=== PATIENT | female | born 2005 | race Caucasian/White ===

== ENCOUNTER 2023-01-25 19:19 | Observation (INO) ==
[2023-01-25 20:44] LABS: Basophils # (auto) 0.01 K/uL (0.00-0.20); Basophils % (auto) 0.2 %; Eosinophils # (auto) 0.04 K/uL (0.00-0.50); Eosinophils % (auto) 0.8 %; Hematocrit (blood only) 42.5 % (37.0-47.0); Hemoglobin 14.4 g/dl (12.0-16.0); Immature Granulocytes # (auto) 0.01 K/uL (0.01-0.20); Immature Granulocytes % (auto) 0.2 %; Lymphocytes # (auto) 1.64 K/uL (1.20-3.40); Lymphocytes % (auto) 32.8 %; Mean Corpuscular Hemoglobin 29.6 pg (25.0-34.0); Mean Corpuscular Hgb Conc 33.9 g/dL (32.0-36.0); Mean Corpuscular Volume 87.4 fL (80.0-100.0); Mean Platelet Volume 11.2 fL (9.4-12.4); Monocytes # (auto) 0.46 K/uL (0.11-0.59); Monocytes % (auto) 9.2 %; Neutrophils # (auto) 2.84 K/uL (1.40-6.50); Neutrophils % (auto) 56.8 %; Platelet Count 297 K/uL (130-400); RDW Standard Deviation 39.1 fL (36.4-46.3); Red Blood Count 4.86 M/uL (4.20-5.40)
[2023-01-25 21:09] LABS: Alanine Aminotransferase 11 U/L (7-52); Albumin Globulin Ratio 1.4 (0.9-2); Albumin Level 4.7 gm/dl (3.4-5.0); Alkaline Phosphatase 49 U/L (34-104); Anion Gap 6 (3-11); Aspartate Aminotransferase 16 U/L (13-39); BUN Creatinine Ratio 13.7 (10-20); Bilirubin,Total 0.3 mg/dl (0.2-1.0); Blood Urea Nitrogen 13 mg/dl (6-23); Calcium 9.6 mg/dl (8.6-10.3); Carbon Dioxide 29 mmol/L (21-32); Chloride 106 mmol/L (98-107); Creatinine Clr Calc Pharmacy 82.1 ml/min; Est GFR (African American) 100.6 ml/min; Est GFR (Non-African American) 86.8 ml/min; Globulin 3.3 gm/dl (2.5-4.0); Glucose 80 mg/dl (70-99(Fasting)); Lipase 51 U/L (11-82); Potassium 3.8 mmol/L (3.5-5.1); Sodium 141 mmol/L (136-145)
[2023-01-25 21:15] LABS: Troponin I High Sensitivity < 2.3 pg/ml (0-14)
--- NOTE | 2023-01-25 21:23 | Emergency Department Note ---
Impression & Plan Spontaneous pneumothorax, Chest pain ED Provider Note NAME: ALE ELDER AGE: 17 SEX: F : 2005 ARRIVES VIA: Walk-In INFORMANT: Patient ED PROVIDER(S): Hilario Watkins DO CHIEF COMPLAINT: chest pain HPI: Patient is a 17-year-old female who presents the ER for chest pain. She notes that started last night and is only present with breathing. She admits to some shortness of breath. No belly pain, nausea, vomiting, or diarrhea. No dysuria, urgency, or frequency. No other exacerbating or remitting factors. PAST MEDICAL HISTORY:See Below PAST SURGICAL HISTORY:See Below FAMILY HISTORY:See Below SOCIAL HISTORY:See Below HOME MEDICATIONS:See Below ALLERGIES:See Below VITALS:See Below PHYSICAL EXAMINATION: GENERAL: Sitting up in bed, alert, well appearing, well nourished, no distress, non-toxic EYE EXAM: normal conjunctiva. OROPHARYNX: mucous membranes are moist LUNGS: Clear to auscultation. Normal chest wall mechanics HEART: no murmurs, S1 normal and S2 normal ABDOMEN: abdomen soft, non-tender, normo-active bowel sounds, no masses, no rebound or guarding. UPPER EXTREMITIES: upper extremities are grossly normal. LOWER EXTREMITIES: No pitting edema. NEURO EXAM: Normal sensorium, cranial nerves II-XII grossly intact, normal speech, no gross weakness of arms, no gross weakness of legs. MEDICAL DECISION MAKING: Patient is a 17-year-old female who presents ER for the above-stated complaint. IV was established blood work was obtained. Labs show no significant leukocytosis or anemia. D-dimer was negative. BMP along with LFTs bilirubin and lipase was unremarkable. Troponin was negative. Patient was COVID-positive around the 25th. Chest x-ray was obtained and showed a right-sided pneumothorax. Measurements at the apex was 3.3 cm. This was discussed with Dr. Heck who is on-call for pulmonology. He recommended a chest tube. This was placed without difficulty by myself at bedside. Thora vent was used and there is no fluttering and repeat chest x-ray right afterwards confirm placement. Following this I did pull off some air and repeat chest x-ray 2 hours later shows improvement of the pneumothorax. Patient was admitted to Dr. Black for further evaluation management by pulmonology. Triage Nursing notes reviewed. Limited review of prior medical records performed Vital Signs: reviewed and remarkable for no significant abnormalities Differential diagnosis: Cardiac ischemia, aortic dissection, pulmonary embolism, pneumothorax, pneumonia, pericarditis, myocarditis, esophageal rupture, GERD, cholecystitis, pancreatitis, musculoskeletal, as well as other pathologies. ER treatment provided: See below Diagnostics interpreted by me include EKG and cardiac monitoring as listed below: -Cardiac Monitoring: An order was placed for continuous cardiac monitoring. The monitor shows a rate of 90 with sinus rhythm. -ECG: Sinus rhythm rate 85 Normal axis No PVCs QTc 445 -Laboratory studies:Interpreted by me as stated above in MDM and shown below. Imaging studies: Xrays: As interpreted by me: Portable AP upright 1 view of the chest shows right-sided pneumothorax Chest x-ray as interpreted by me: Portable AP upright 1 view of the chest shows shows chest tube in place with pneumothorax that has slightly worsened Chest x-ray as interpreted by me portable AP upright 1 view of the chest shows chest tube in place with near resolution of the pneumothorax CTs show: none Consultation(s): As described in [facility] Procedures: EM PROCEDURE NOTE - Chest Tube Placement PRIOR TO PROCEDURE: Informed consent was obtained by the patient. Verify Correct Patient: yes Verify Correct Site: yes Verify Correct Procedure: yes Verify Correct Position: yes PROCEDURE NOTE: The patient was seen and properly identified. A Time Out was held and the above information confirmed. The patient was placed in the supine position. The right chest overlying the second intercostal spaces midclavicular line was prepped and draped in usual sterile fashion. Skin anesthetized with 1% lidocaine. An incision was made in the second intercostal space. A Thora vent chest tube was inserted into the chest. There is little to no fluttering present. The chest was secured by the adhesive tape. The chest tube was attached to a Pleurevac or Atrium which was placed at 15 mmHg for suction. Chest x-ray for placement was ordered. The patient tolerated the procedure well. Radiologic Confirmation: yes Critical Care: None Past Med/Surg History Social History Smoking Status: Never smoker Feels Safe at Home: Yes Allergies Allergies Allergy/AdvReac Type Severity Reaction Status Date / Time grass pollen Allergy Intermediate CONGESTION, Verified 01/25/23 21:51 HAS CAUSED SINUS INFECTIONS Home Meds Home Medications Medication Instructions Recorded Confirmed No Known Home Medications 01/25/23 01/25/23 Results & Data (ED) Vital Signs Vital Signs - 24 hr 01/25/23 19:25 01/25/23 19:28 01/25/23 21:38 Temperature 36.8 C Temperature Source Temporal Artery Scan Pulse Rate 98 H Pulse Rate [Apical] 90 Pulse Rate from SpO2 Sensor Respiratory Rate 14 22 Respiratory Effort / Characteristics Non-Labored Spontaneous Short of Breath Respiratory Depth Normal Blood Pressure 142/94 H Blood Pressure [Right Arm] 127/71 Blood Pressure Mean 110 Blood Pressure Mean [Right Arm] 89 Pulse Oximetry 99 100 Oxygen Delivery Method Room Air Room Air Sepsis Recent Fever Within 48 Hours No Sepsis New/Unexplained Change in Mental Status No Sepsis Action Taken by Nursing No Action Required 01/25/23 21:44 01/25/23 21:57 01/25/23 22:00 Temperature Temperature Source Pulse Rate 88 77 Pulse Rate [Apical] Pulse Rate from SpO2 Sensor 74 Respiratory Rate 22 Respiratory Effort / Characteristics Respiratory Depth Blood Pressure 137/73 Blood Pressure [Right Arm] Blood Pressure Mean 94 Blood Pressure Mean [Right Arm] Pulse Oximetry 100 100 Oxygen Delivery Method Non-rebreather Sepsis Recent Fever Within 48 Hours Sepsis New/Unexplained Change in Mental Status Sepsis Action Taken by Nursing 01/25/23 22:48 01/25/23 23:12 01/25/23 22:30 Temperature Temperature Source Pulse Rate 74 Pulse Rate [Apical] 93 H Pulse Rate from SpO2 Sensor 73 Respiratory Rate 21 19 Respiratory Effort / Characteristics Respiratory Depth Blood Pressure 120/69 Blood Pressure [Right Arm] 132/74 Blood Pressure Mean 86 Blood Pressure Mean [Right Arm] 93 Pulse Oximetry 100 100 100 Oxygen Delivery Method Room Air Room Air Room Air Sepsis Recent Fever Within 48 Hours Sepsis New/Unexplained Change in Mental Status Sepsis Action Taken by Nursing 01/25/23 23:00 Temperature Temperature Source Pulse Rate 88 Pulse Rate [Apical] Pulse Rate from SpO2 Sensor 82 Respiratory Rate 23 Respiratory Effort / Characteristics Respiratory Depth Blood Pressure 132/74 Blood Pressure [Right Arm] Blood Pressure Mean 93 Blood Pressure Mean [Right Arm] Pulse Oximetry 95 Oxygen Delivery Method Room Air Sepsis Recent Fever Within 48 Hours Sepsis New/Unexplained Change in Mental Status Sepsis Action Taken by Nursing Laboratory Data 01/25/23 20:25 01/25/23 20:25 Lab Results 01/25/23 01/25/23 01/25/23 Range/Units 20:25 20:25 20:25 WBC 5.00 (4.8-10.8) K/ul RBC 4.86 (4.20-5.40) M/uL Hgb 14.4 (12.0-16.0) g/dl Hct 42.5 (37.0-47.0) % MCV 87.4 (80.0-100.0) fL MCH 29.6 (25.0-34.0) pg MCHC 33.9 (32.0-36.0) g/dL RDW Std Deviation 39.1 (36.4-46.3) fL RDW Coeff of Johnny 12.0 (11.5-14.5) % Plt Count 297 (130-400) K/uL MPV 11.2 (9.4-12.4) fL Immature Gran % (Auto) 0.2 % Neut % (Auto) 56.8 % Lymph % (Auto) 32.8 % Weld % (Auto) 9.2 % Eos % (Auto) 0.8 % Baso % (Auto) 0.2 % Neut # (Auto) 2.84 (1.40-6.50) K/uL Lymph # (Auto) 1.64 (1.20-3.40) K/uL Weld # (Auto) 0.46 (0.11-0.59) K/uL Eos # (Auto) 0.04 (0.00-0.50) K/uL Baso # (Auto) 0.01 (0.00-0.20) K/uL Immature Gran # (Auto) 0.01 (0.01-0.20) K/uL D-Dimer < 190 (0-500) ug/L FEU Sodium 141 (136-145) mmol/L Potassium 3.8 (3.5-5.1) mmol/L Chloride 106 (98-107) mmol/L Carbon Dioxide 29 (21-32) mmol/L Anion Gap 6 (3-11) BUN 13 (6-23) mg/dl Creatinine 0.95 (0.6-1.2) mg/dl Est Cr Clr Drug Dosing 82.1 ml/min Est GFR ( Amer) 100.6 ml/min Est GFR (Non-Af Amer) 86.8 ml/min BUN/Creatinine Ratio 13.7 (10-20) Glucose 80 (70-99(Fasting)) mg/dl Calcium 9.6 (8.6-10.3) mg/dl Total Bilirubin 0.3 (0.2-1.0) mg/dl AST 16 (13-39) U/L ALT 11 (7-52) U/L Alkaline Phosphatase 49 (34-104) U/L Troponin I High Sens < 2.3 (0-14) pg/ml Total Protein 8.0 (6.0-8.3) gm/dl Albumin 4.7 (3.4-5.0) gm/dl Globulin 3.3 (2.5-4.0) gm/dl Albumin/Globulin Ratio 1.4 (0.9-2) Lipase 51 (11-82) U/L SARS-CoV-2, RNA, NAAT (NEGATIVE) 01/25/23 Range/Units 22:38 WBC (4.8-10.8) K/ul RBC (4.20-5.40) M/uL Hgb (12.0-16.0) g/dl Hct (37.0-47.0) % MCV (80.0-100.0) fL MCH (25.0-34.0) pg MCHC (32.0-36.0) g/dL RDW Std Deviation (36.4-46.3) fL RDW Coeff of Johnny (11.5-14.5) % Plt Count (130-400) K/uL MPV (9.4-12.4) fL Immature Gran % (Auto) % Neut % (Auto) % Lymph % (Auto) % Weld % (Auto) % Eos % (Auto) % Baso % (Auto) % Neut # (Auto) (1.40-6.50) K/uL Lymph # (Auto) (1.20-3.40) K/uL Weld # (Auto) (0.11-0.59) K/uL Eos # (Auto) (0.00-0.50) K/uL Baso # (Auto) (0.00-0.20) K/uL Immature Gran # (Auto) (0.01-0.20) K/uL D-Dimer (0-500) ug/L FEU Sodium (136-145) mmol/L Potassium (3.5-5.1) mmol/L Chloride (98-107) mmol/L Carbon Dioxide (21-32) mmol/L Anion Gap (3-11) BUN (6-23) mg/dl Creatinine (0.6-1.2) mg/dl Est Cr Clr Drug Dosing ml/min Est GFR ( Amer) ml/min Est GFR (Non-Af Amer) ml/min BUN/Creatinine Ratio (10-20) Glucose (70-99(Fasting)) mg/dl Calcium (8.6-10.3) mg/dl Total Bilirubin (0.2-1.0) mg/dl AST (13-39) U/L ALT (7-52) U/L Alkaline Phosphatase (34-104) U/L Troponin I High Sens (0-14) pg/ml Total Protein (6.0-8.3) gm/dl Albumin (3.4-5.0) gm/dl Globulin (2.5-4.0) gm/dl Albumin/Globulin Ratio (0.9-2) Lipase (11-82) U/L SARS-CoV-2, RNA, NAAT POSITIVE A* (NEGATIVE) Administered Medications Discontinued Medications Fentanyl Citrate (Fentanyl Citrate Pf 100 Mcg/2 Ml Vial) Confirm Administered Dose 100 mcg .ROUTE .STK-MED ONE Stop: 01/25/23 21:52 Last Increment: 01/25/23 22:09 Dose: 60 mcg Documented By: SETH Fentanyl Citrate (Fentanyl Citrate Pf 100 Mcg/2 Ml Vial) 100 mcg IV NOW STA Stop: 01/25/23 21:55 Last Admin: 01/25/23 22:10 Dose: Not Given Documented By: SETH Fentanyl Citrate (Fentanyl Citrate Pf 100 Mcg/2 Ml Vial) 60 mcg IV NOW ONE Stop: 01/25/23 22:11 Last Admin: 01/25/23 22:11 Dose: Not Given Documented By: SETH Cefazolin Sodium 3,000 mg/ (Dextrose) 72.5 mls @ 145 mls/hr IV NOW STA Stop: 01/25/23 23:52 Last Admin: 01/25/23 23:44 Dose: 145 mls/hr Documented By: BRENDA Lidocaine HCl (Lidocaine 1% Local 20 Ml Vial) Confirm Administered Dose 1 ml .ROUTE .STK-MED ONE Stop: 01/25/23 21:39 Last Admin: 01/25/23 21:50 Dose: 1 ml Documented By: SETH Lidocaine HCl (Lidocaine 1% Local 20 Ml Vial) 50 ml INJ NOW ONE Stop: 01/25/23 21:56 Last Admin: 01/25/23 21:57 Dose: Not Given Documented By: SETH Discharge Plan Visit Data Chief Complaint: Chest Pain Stated Complaint: CHEST PAINS, COUGH ED Provider: Hilario Watkins Discharge Problem: Spontaneous pneumothorax, Chest pain Forms Stand Alone Forms: [facility] Prescriptions Prescriptions: No Action No Known Home Medications Referrals Referrals: PCP,NO [Physician] -
[2023-01-25 21:28] LABS: D Dimer < 190 ug/L FEU (0-500)
[2023-01-25] MEDS ORDERED: LIDOCAINE 1% LOCAL 20 ML VIAL ONE (21:38)
[2023-01-25] MEDS ORDERED: fentaNYL citrate PF 100 MCG/2 ML VIAL ONE (21:51)
[2023-01-25] MEDS ORDERED: fentaNYL citrate PF 100 MCG/2 ML VIAL IV STA (21:54)
[2023-01-25] MEDS ORDERED: LIDOCAINE 1% LOCAL 20 ML VIAL INJ ONE (21:55)
[2023-01-25] MEDS ORDERED: fentaNYL citrate PF 100 MCG/2 ML VIAL IV ONE (22:10)
--- NOTE | 2023-01-25 22:16 | History & Physical Report ---
Date of Service January 25, 2023 Assessment & Plan (1) Spontaneous pneumothorax: Plan 17 y/o female with no PMH admitted due to right spontaneous pneumothorax Right spontaneous pneumothorax - Patient with right sharp chest pain since yesterday, associated with SOB - Chest xray showed right upper pneumothorax -Chest tube placed in the ER -Pneumology consulted -Patient will be admitted to PCU -Serial of Chest x ray am -labs am Code: Full code Dispo: PCU FEN/GI: regular DVT prophylaxis: Low risk PT/OT: no Consults: Pneumology Case management: no History of Present Illness Primary Care Provider: [facility] 17 y/o female with no PMH that was sent here from the urgency due right chest pain and SOB. Patient refers a sharp pain that started yesterday that worsen with inspiration. No alleviating factors. No previous history of pneumothorax. Denied any trauma. She denied any nausea, vomiting, diarrhea, fever, abdominal pain or any other symptoms. Patient tested positive for Covid 19 a week ago. In the ER, Chest tube was placed with suction. Pneumology was consulted in the ER. Patient saturating 100, at room air. Patient will be admitted in PCU for monitoring for chest tube. Will follow with chest x ray am. Allergies Allergy/AdvReac Type Severity Reaction Status Date / Time grass pollen Allergy Intermediate CONGESTION, Verified 01/25/23 21:51 HAS CAUSED SINUS INFECTIONS Home Medications Medication Instructions Recorded Confirmed Type No Known Home Medications 01/25/23 01/25/23 History Past Med/Surg History Social History Smoking Status: Never smoker Communication Ability: Effective Feels Safe at Home: Yes Assistive Devices: None Review of Systems Review of Systems: as per HPI Physical Exam Constitutional: WD/WN, vitals as above Eyes: PERRL, conjunctivae normal, anicteric sclerae ENMT: external ear and nose normal, oropharynx normal Respiratory: normal respiratory effort, lungs clear to auscultation (Diminished breath sounds on upper right lung) Cardiovascular: RRR, no murmur, no edema Gastrointestinal (Abdomen): normal bowel sounds, soft, nontender, no hepatosplenomegaly Musculoskeletal: no cyanosis or clubbing, extremities motor strength 5/5 Skin: no rashes, warm and dry Results & Data Results & Data Vital Signs (Past 12 Hours) Vital Signs Temp Pulse Pulse Resp BP BP Pulse Ox 01/25/23 21:57 100 01/25/23 21:44 88 01/25/23 21:38 90 22 127/71 100 01/25/23 19:25 36.8 C 98 H 14 142/94 H 99 O2 Del Method 01/25/23 21:57 Non-rebreather 01/25/23 21:44 01/25/23 21:38 Room Air 01/25/23 19:25 Room Air Supervising Physician Co-Signing Physician Notes Patient seen and examined, chart reviewed, case discussed with Dr. Mata and I agree with the assessment and plan as documented above. In brief, patient is a 17yo female with no significant past medical or surgical history presenting with chest pain. Found to have spontaneous pneumothorax on the left - 3cm in size. A Thoravent was placed in the ER with improvement in sequential CXRs. Patient is a lifelong smoker, denies trauma, no prior pneumothoraces. She recently tested POSITIVE for Covid-19 infection on January 15. She reports being minimally symptomatic with this. Symptoms have improved. She has been afebrile. On exam she is resting comfortably Thoravent present in right anterior chest Breath sounds absent in the right apex, normal elsewhere. Trachea midline +S1/S2, regular, no m/r/g Lungs CTA Abd soft, NT/ND Labs and images reviewed Assessment/Plan Spontaneous pneumothorax s/p Thoravent placement in the ER with improvement on repeat CXR. Patient is minimally symptomatic. No SOB. Adequate oxygenation. HD stable -Repeat CXR in AM -Pulmonary consultation appreciated -In regards to Covid-19 - she first tested POSITIVE on 01/15/23. She is currently 10 days out. Respiratory symptoms have improved and she has remained afebrile. Per protocol, does not require isolation at this time. -Remainder of plan as above Resident Activity Tracking Resident Involvement: Resident Care Provided Care Provided: Adult Hospital Medicine
[2023-01-25] MEDS ORDERED: ceFAZolin 3,000 MG in DEXTROSE 5% 50 ML IV STA (23:23)
[2023-01-26] MEDS ORDERED: ACETAMINOPHEN 1,000 MG/100 ML VIAL IV STA (02:32)
[2023-01-26] MEDS ORDERED: oxyCODONE HCL IR 5 MG TAB (IMMEDIATE RELEASE) PO STA (02:32)
[2023-01-26] MEDS ORDERED: ACETAMINOPHEN 325 MG TAB PO PRN (04:30)
[2023-01-26] MEDS ORDERED: traMADol HCL 50 MG TABLET PO PRN (04:30)
[2023-01-26] MEDS ORDERED: ONDANSETRON INJ 2 MG/ML 2 ML VIAL IV PRN (04:30)
[2023-01-26 05:20] LABS: Hematocrit (blood only) 37.4 % (37.0-47.0); Hemoglobin 12.8 g/dl (12.0-16.0); Mean Corpuscular Hgb Conc 34.2 g/dL (32.0-36.0); Mean Corpuscular Volume 87.6 fL (80.0-100.0); Mean Platelet Volume 11.3 fL (9.4-12.4); Platelet Count 265 K/uL (130-400); RDW Coefficient of Variation 11.9 % (11.5-14.5); RDW Standard Deviation 38.5 fL (36.4-46.3); Red Blood Count 4.27 M/uL (4.20-5.40); White Blood Count 5.66 K/ul (4.8-10.8)
[2023-01-26 05:41] LABS: Alanine Aminotransferase 9 U/L (7-52); Albumin Globulin Ratio 1.4 (0.9-2); Alkaline Phosphatase 38 U/L (34-104); Anion Gap 7 (3-11); Aspartate Aminotransferase 15 U/L (13-39); BUN Creatinine Ratio 14.5 (10-20); Bilirubin,Total 0.3 mg/dl (0.2-1.0); Blood Urea Nitrogen 9 mg/dl (6-23); Calcium 8.8 mg/dl (8.6-10.3); Carbon Dioxide 25 mmol/L (21-32); Chloride 104 mmol/L (98-107); Creatinine Clr Calc Pharmacy 125.8 ml/min; Est GFR (African American) > 150.0 ml/min; Est GFR (Non-African American) 130.7 ml/min; Globulin 2.8 gm/dl (2.5-4.0); Glucose 104 mg/dl (70-99(Fasting)); Potassium 3.5 mmol/L (3.5-5.1); Sodium 136 mmol/L (136-145); Total Protein 6.8 gm/dl (6.0-8.3)
--- NOTE | 2023-01-26 06:36 | Hospitalist Progress Note ---
Date of Service January 26, 2023 Assessment & Plan (1) Spontaneous pneumothorax: Plan 17 y/o female with no PMH admitted due to a right spontaneous pneumothorax Right spontaneous pneumothorax -Negative Troponin and D-dimer on 01/25 -Serial CXRs show improving pneumothorax near resolution -Pulmonary was consulted this morning and Thora tube was clamped -Pending noncontrast CT chest to evaluate for any lung structural abnormalities -Will repeat inspiratory chest XR 2 hours after clamping and if the lung remains stable, the tube can be discontinuted and patient can be discharged -Avoid barometric pressure changing events for 2-4 weeks -Follow up with PCP for CXR and spirometry in 6-8 weeks COVID-19: -First positive on 01/15, still testing positive as of 01/26 -Asymptomatic and no additional evaluation, management, or therapy is indicated at this time Code: Full code Dispo: PCU FEN/GI: regular DVT prophylaxis: Low risk PT/OT: no Consults: Pneumology Case management: no Admission and Anticipated Discharge Date Admission Date: January 25, 2023 Naun Cisneros is a 17 year-old female with a past medical history of acid reflux and no prior pulmonary history admitted for a spontaneous pneumothorax. She tested positive for COVID last week on 01/15 with sore throat and nasal congestion being her primary symptoms. Although, she is now currently asymptomatic. On Tuesday evening (01/24), patient was sitting on her couch and watching TV and suddenly started experiencing chest pain brought on by deep inspirations. The pain is described as a pressure-like pain and rated a 7 out of 10. She took an antacid without any relief and presented to the ED the following day after not noticing any improvement. Exacerbating factors include physical activity and deep inspirations. Remitting factors include rest and laying down. CXR in the ED showed a right-sided pneumothorax measuring 3.3 cm from the apex. A Thora vent chest tube was placed to suction by the ED team. Serial repeat CXRs showed an improving and near resolution pneumothorax. The patient reports no previous history of a pneumothorax or asthma. She has no history of tobacco use or e-cigarette use. No family history of pneumothorax. She denies any SOB, abdominal pain, nausea, vomiting, diarrhea, dysuria, or urinary frequency. No recent travel or scuba diving. History was obtained from the patient at bedside as well as her mother who was also in the room at time of visit. Review of Systems Review of Systems: As per above Physical Exam Respiratory: Normal respiratory effort. Lungs are clear to auscultation bilaterally. No rails, rhonchi, or wheezing. Cardiovascular: Normal S1/S2 sounds present. Regular rate and rhythm. No murmurs, rubs, or gallops. Chest (Breasts): Additional Comments: Thora vent chest tube in place at the 2nd intercostal space Results & Data Results & Data Vital Signs (Past 12 Hours) Vital Signs Temp Pulse Pulse Resp BP BP Pulse Ox 01/26/23 04:51 63 108/63 98 01/26/23 04:51 01/26/23 02:30 80 24 99 01/26/23 03:25 71 18 108/63 98 01/26/23 03:21 68 18 97 01/26/23 01:00 115 H 01/26/23 01:00 83 18 86/70 L 98 01/26/23 00:00 75 20 115/65 100 01/25/23 23:00 88 23 132/74 95 01/25/23 22:30 74 19 120/69 100 01/25/23 23:12 93 H 21 132/74 100 01/25/23 22:48 100 01/25/23 22:00 77 22 137/73 100 01/25/23 21:57 100 01/25/23 21:44 88 01/25/23 21:38 90 22 127/71 100 01/25/23 19:25 36.8 C 98 H 14 142/94 H 99 Pulse Ox O2 Del Method O2 Del Method 01/26/23 04:51 Room Air 01/26/23 04:51 99 Room Air 01/26/23 02:30 Room Air 01/26/23 03:25 Room Air 01/26/23 03:21 Room Air 01/26/23 01:00 01/26/23 01:00 Room Air 01/26/23 00:00 Room Air 01/25/23 23:00 Room Air 01/25/23 22:30 Room Air 01/25/23 23:12 Room Air 01/25/23 22:48 Room Air 01/25/23 22:00 01/25/23 21:57 Non-rebreather 01/25/23 21:44 01/25/23 21:38 Room Air 01/25/23 19:25 Room Air
--- NOTE | 2023-01-26 07:21 | XRay Report ---
XR chest 1V portable HISTORY: 17 years-old Female Chest pain, nonspecific COMPARISON: None TECHNIQUE: PA view of the chest FINDINGS: Cardiomediastinal and hilar silhouettes are within normal limits. No pleural effusion or airspace con solidation. Right-sided pneumothorax with pleural separation of 3.6 cm. Bones appear normal. IMPRESSION: 1. Right-sided pneumothorax. 2. No acute fracture identified. ACT 112: Negative or not required by law. The above report was generated using voice recognition software. It may contain grammatical, syntax o r spelling errors. Electronically signed by: Rick Yanez M.D. 01/26/2023 7:19 AM
--- NOTE | 2023-01-26 07:30 | XRay Report ---
XR chest 1V portable HISTORY: Right-sided pneumothorax. chest tube COMPARISON: Chest 01/25/2023. FINDINGS: Interval placement of a right-sided chest tube which terminates near the right lung apex. T he right pneumothorax is similar in size measuring a maximal pleural gap of 3.4 cm. No midline shift. The lungs are clear. The heart is normal in size. No acute fractures identified. IMPRESSION: 1. The right-sided chest tube terminates near the right lung apex. 2. No significant change in the moderate right pneumothorax. No midline shift. ACT 112: Negative or not required by law. Electronically signed by: Jony Mederos M.D. 01/26/2023 7:29 AM
--- NOTE | 2023-01-26 07:31 | XRay Report ---
XR chest 1V portable HISTORY: Follow-up right-sided pneumothorax. COMPARISON: Chest 01/25/2023. FINDINGS: The right-sided chest tube terminates in the right midlung zone. There has been interval de crease in size of the right pneumothorax. The right pneumothorax has almost completely resolved in th e interval. No midline shift. The lungs are clear. The heart is normal in size. IMPRESSION: Near complete resolution of the right pneumothorax. Right-sided chest tube remains in place. ACT 112: Negative or not required by law. Electronically signed by: Jony Mederos M.D. 01/26/2023 7:30 AM
--- NOTE | 2023-01-26 07:43 | XRay Report ---
XR chest 1V portable HISTORY: Follow-up right-sided pneumothorax. COMPARISON: Chest 01/25/2023. FINDINGS: No significant change in the small right pneumothorax demonstrating a maximal pleural gap o f 8 mm. The right-sided chest tube is unchanged in position. No mediastinal shift. The lungs are olaf r. The heart is normal in size. IMPRESSION: No significant change in the small right pneumothorax. ACT 112: Negative or not required by law. Electronically signed by: Jony Mederos M.D. 01/26/2023 7:42 AM
--- NOTE | 2023-01-26 07:55 | Pulmonary Consultation ---
Date of Consultation January 26, 2023 Assessment & Plan (1) Spontaneous pneumothorax: (2) Chest pain: Plan Impression: 17-year-old female with spontaneous pneumothorax. This may have been secondary to COVID or potential coughing/retching with increased intrathoracic pressure. She has had tube placement with radiographic resolution. Recommendations: 1. Primary spontaneous pneumothorax: We will obtain CT this chest noncontrast to evaluate for any structural lung abnormalities. 2. The tube was clamped this morning. We will plan on inspiratory expiratory chest x-rays in 2 hours and if the lung remains up, the tube can be discontinued and the patient dismissed home. 3. The patient was advised to avoid activities resulting in change in barometric pressure for the next 2 to 4 weeks including commercial air flight. Scuba diving is relatively contraindicated. Recommend she follow-up with her primary care provider with a chest x-ray and spirometry in 6 to 8 weeks. 4. With regards to her COVID, she is relatively asymptomatic from a pulmonary standpoint no additional evaluation management or therapy is indicated at this time. The above recommendations and plan were communicated to the patient as well as her mother at bedside. Questions were answered to the best my ability. She expressed understanding and is agreement with plan as outlined. History of Present Illness Attending Physician: Talisha Black, History of Present Illness Asked by hospitalist to assist in evaluation management of this patient with pneumothorax. History is obtained from discussion with the patient as well as her mother at bedside and reviewed electronic medical record as well as discussion with the ER staff. Patient is a 17-year-old female without prior pulmonary history. She was diagnosed with COVID last week and primarily had sinus issues as well as some GI complaints including nausea and vomiting. She states that on Tuesday evening she developed chest pain which persisted. This prompted her to be seen in the emergency room yesterday. Chest x-ray demonstrated a 3 cm apical pneumothorax on the right. Given the 3 cm size, a Thora vent was placed by the ER staff and the tube was placed to suction. On her x-ray this morning it appears that the pneumothorax is resolved. The patient denies prior history of pneumothorax. She is a lifelong non-smoker. No history of vaping e-cigarette use or other inhalational exposures. No family history of pneumothorax that she is aware of. She denies any skin lesions resembling fibro follicular adenomas. She is not having any dysphagia. No prior history of asthma Allergies Allergy/AdvReac Type Severity Reaction Status Date / Time grass pollen Allergy Intermediate CONGESTION, Verified 01/25/23 21:51 HAS CAUSED SINUS INFECTIONS Home Medications Medication Instructions Recorded Confirmed Type No Known Home Medications 01/25/23 01/25/23 History Patient History Social History Smoking Status: Never smoker Feels Safe at Home: Yes Review of Systems Review of Systems: All systems reviewed & are unremarkable except as noted in Subjective Physical Exam Constitutional: WD/WN, vitals as above Neck: trachea midline, no thyromegaly Respiratory: normal respiratory effort, lungs clear to auscultation Cardiovascular: RRR, no murmur, no edema Chest (Breasts): Additional Comments: Thora vent currently on suction. No air leak. No titling. Gastrointestinal (Abdomen): normal bowel sounds, soft, nontender, no hepatosplenomegaly Musculoskeletal: Extremities: extremities normal to inspection Skin: no rashes, warm and dry Neurologic: Nonfocal exam Lymphatic: no cervical lymphadenopathy Results & Data Results & Data Vital Signs (Past 12 Hours) Vital Signs Pulse Pulse Resp BP BP Pulse Ox Pulse Ox 01/26/23 07:16 64 01/26/23 04:51 63 108/63 98 01/26/23 04:51 99 01/26/23 02:30 80 24 99 01/26/23 03:25 71 18 108/63 98 01/26/23 03:21 68 18 97 01/26/23 01:00 115 H 01/26/23 01:00 83 18 86/70 L 98 01/26/23 00:00 75 20 115/65 100 01/25/23 23:00 88 23 132/74 95 01/25/23 22:30 74 19 120/69 100 01/25/23 23:12 93 H 21 132/74 100 01/25/23 22:48 100 01/25/23 22:00 77 22 137/73 100 01/25/23 21:57 100 01/25/23 21:44 88 01/25/23 21:38 90 22 127/71 100 O2 Del Method O2 Del Method 01/26/23 07:16 01/26/23 04:51 Room Air 01/26/23 04:51 Room Air 01/26/23 02:30 Room Air 01/26/23 03:25 Room Air 01/26/23 03:21 Room Air 01/26/23 01:00 01/26/23 01:00 Room Air 01/26/23 00:00 Room Air 01/25/23 23:00 Room Air 01/25/23 22:30 Room Air 01/25/23 23:12 Room Air 01/25/23 22:48 Room Air 01/25/23 22:00 01/25/23 21:57 Non-rebreather 01/25/23 21:44 01/25/23 21:38 Room Air Critical Care Results & Data Vital Signs (Past 12 Hours) Vital Signs Pulse Pulse Resp BP BP Pulse Ox Pulse Ox 01/26/23 07:16 64 01/26/23 04:51 63 108/63 98 01/26/23 04:51 99 01/26/23 02:30 80 24 99 01/26/23 03:25 71 18 108/63 98 01/26/23 03:21 68 18 97 01/26/23 01:00 115 H 01/26/23 01:00 83 18 86/70 L 98 01/26/23 00:00 75 20 115/65 100 01/25/23 23:00 88 23 132/74 95 01/25/23 22:30 74 19 120/69 100 01/25/23 23:12 93 H 21 132/74 100 01/25/23 22:48 100 01/25/23 22:00 77 22 137/73 100 01/25/23 21:57 100 01/25/23 21:44 88 01/25/23 21:38 90 22 127/71 100 O2 Del Method O2 Del Method 01/26/23 07:16 01/26/23 04:51 Room Air 01/26/23 04:51 Room Air 01/26/23 02:30 Room Air 01/26/23 03:25 Room Air 01/26/23 03:21 Room Air 01/26/23 01:00 01/26/23 01:00 Room Air 01/26/23 00:00 Room Air 01/25/23 23:00 Room Air 01/25/23 22:30 Room Air 01/25/23 23:12 Room Air 01/25/23 22:48 Room Air 01/25/23 22:00 01/25/23 21:57 Non-rebreather 01/25/23 21:44 01/25/23 21:38 Room Air Lab & Micro Results (Past 24 Hours) RBC 4.27 M/uL (4.20-5.40) 01/26/23 WBC 5.66 K/ul (4.8-10.8) 01/26/23 Hgb 12.8 g/dl (12.0-16.0) 01/26/23 Hct 37.4 % (37.0-47.0) 01/26/23 MCV 87.6 fL (80.0-100.0) 01/26/23 MCH 30.0 pg (25.0-34.0) 01/26/23 MCHC 34.2 g/dL (32.0-36.0) 01/26/23 RDW Standard Deviation 38.5 fL (36.4-46.3) 01/26/23 RDW Coefficient of Variation 11.9 % (11.5-14.5) 01/26/23 Plt Count 265 K/uL (130-400) 01/26/23 MPV 11.3 fL (9.4-12.4) 01/26/23 Neutrophils (%) (Auto) 56.8 % 01/25/23 Lymphocytes (%) (Auto) 32.8 % 01/25/23 Monocytes # (Auto) 0.46 K/uL (0.11-0.59) 01/25/23 Eosinophils # (Auto) 0.04 K/uL (0.00-0.50) 01/25/23 Immature Granulocyte % (Auto) 0.2 % 01/25/23 Neutrophils # (Auto) 2.84 K/uL (1.40-6.50) 01/25/23 Lymphocytes # (Auto) 1.64 K/uL (1.20-3.40) 01/25/23 Monocytes # (Auto) 0.46 K/uL (0.11-0.59) 01/25/23 Eosinophils # (Auto) 0.04 K/uL (0.00-0.50) 01/25/23 Basophils # (Auto) 0.01 K/uL (0.00-0.20) 01/25/23 Immature Granulocyte # (Auto) 0.01 K/uL (0.01-0.20) 3 Na 136 mmol/L (136-145) 01/26/23 K 3.5 mmol/L (3.5-5.1) 01/26/23 Cl 104 mmol/L (98-107) 01/26/23 CO2 25 mmol/L (21-32) 01/26/23 Anion Gap 7 (3-11) 01/26/23 BUN 9 mg/dl (6-23) 01/26/23 Creatinine 0.62 mg/dl (0.6-1.2) 01/26/23 Estimated GFR ( Amer) > 150.0 ml/min 01/26/23 Estimated GFR (Non-Af Amer) 130.7 ml/min 01/26/23 BUN/Creatinine Ratio 14.5 (10-20) 01/26/23 Glu 104 mg/dl (70-99(Fasting)) H 01/26/23 Ca 8.8 mg/dl (8.6-10.3) 01/26/23 Total Bilirubin 0.3 mg/dl (0.2-1.0) 01/26/23 AST 15 U/L (13-39) 01/26/23 ALT 9 U/L (7-52) 01/26/23 Alkaline Phosphatase 38 U/L (34-104) 01/26/23 TP 6.8 gm/dl (6.0-8.3) 01/26/23 Albumin 4.0 gm/dl (3.4-5.0) 01/26/23 Globulin 2.8 gm/dl (2.5-4.0) 01/26/23 Albumin/Globulin Ratio 1.4 (0.9-2) 01/26/23 Calcium Level 8.8 mg/dl (8.6-10.3) 01/26/23 04:38 Diagnostic Findings (Past 24 Hours) Chest X-Ray 01/25/23 19:29 XR chest 1V portable HISTORY: 17 years-old Female Chest pain, nonspecific COMPARISON: None TECHNIQUE: PA view of the chest FINDINGS: Cardiomediastinal and hilar silhouettes are within normal limits. No pleural effusion or airspace consolidation. Right-sided pneumothorax with pleural separation of 3.6 cm. Bones appear normal. IMPRESSION: 1. Right-sided pneumothorax. 2. No acute fracture identified. ACT 112: Negative or not required by law. The above report was generated using voice recognition software. It may contain grammatical, syntax or spelling errors. Electronically signed by: Rick Yanez M.D. 01/26/2023 7:19 AM Chest X-Ray 01/25/23 22:25 XR chest 1V portable HISTORY: Right-sided pneumothorax. chest tube COMPARISON: Chest 01/25/2023. FINDINGS: Interval placement of a right-sided chest tube which terminates near the right lung apex. The right pneumothorax is similar in size measuring a maximal pleural gap of 3.4 cm. No midline shift. The lungs are clear. The heart is normal in size. No acute fractures identified. IMPRESSION: 1. The right-sided chest tube terminates near the right lung apex. 2. No significant change in the moderate right pneumothorax. No midline shift. ACT 112: Negative or not required by law. Electronically signed by: Jony Mederos M.D. 01/26/2023 7:29 AM Chest X-Ray 01/25/23 23:18 XR chest 1V portable HISTORY: Follow-up right-sided pneumothorax. COMPARISON: Chest 01/25/2023. FINDINGS: The right-sided chest tube terminates in the right midlung zone. There has been interval decrease in size of the right pneumothorax. The right pneumothorax has almost completely resolved in the interval. No midline shift. The lungs are clear. The heart is normal in size. IMPRESSION: Near complete resolution of the right pneumothorax. Right-sided chest tube remains in place. ACT 112: Negative or not required by law. Electronically signed by: Jony Mederos M.D. 01/26/2023 7:30 AM Chest X-Ray 01/26/23 04:30 XR chest 1V portable HISTORY: Follow-up right-sided pneumothorax. COMPARISON: Chest 01/25/2023. FINDINGS: No significant change in the small right pneumothorax demonstrating a maximal pleural gap of 8 mm. The right-sided chest tube is unchanged in position. No mediastinal shift. The lungs are clear. The heart is normal in size. IMPRESSION: No significant change in the small right pneumothorax. ACT 112: Negative or not required by law. Electronically signed by: Jony Mederos M.D. 01/26/2023 7:42 AM I & O Totals 24 Hours 01/25/23 01/26/2301/27/23 06:59 06:59 06:59 Intake Total 172.5 / 172.5 Balance 172.5 / 172.5 Cumulative 01/25/23 19:19 thru 01/26/23 03:33 Intake Total 172.5 Balance 172.5 RT Ventilator Mngmt (Last Documented) Ventilator Ordered Settings Respiratory Rate 18 01/26/23 03:25 Ventilator - PT Measurements Respiratory Rate 18 PG Care Time/CCT Total # of Minutes Spent Total Time Spent with Patient: Total time spent is greater than 50% in coordination of care (as documented) at patient's floor/unit and/or counseling patient: Coding Level of Care Code 37127 IN/OBS CONSULT LVL 4,60M Diagnoses Spontaneous pneumothorax J93.83 Chest pain R07.9
--- NOTE | 2023-01-26 10:36 | CT Scan Report ---
CT chest diagnostic wo con CT DOSE: 288.86 mGy.cm HISTORY: Right-sided pneumothorax. TECHNIQUE: Multiaxial CT images of the chest were performed without contrast. A dose lowering techni que was utilized adhering to the principles of ALARA. COMPARISON: Chest 01/26/2023. FINDINGS: There is a right anterior pleural catheter terminating within the mid pleural space. A smal l right pneumothorax persists. No definite evidence for an apical bleb. A 3 mm subpleural nodule with in the right upper lobe anteriorly adjacent to the pleural catheter. This may be due to the pleural c atheter placement. There is a 4 mm subpleural nodule within the right lower lobe in image 85. This is indeterminate but likely benign given the patient's age. No focal lung consolidations to suggest a p neumonia. The central airways are patent. No acute fractures. Limited views the upper abdomen demonst rate a normal liver, spleen, and adrenal glands. Normal esophagus. Normal caliber thoracic aorta. Sma ll amount of soft tissue within the anterior mediastinum is consistent with residual thymus given the patient's age. No pericardial effusion. The heart is normal in size. Trace right pleural effusion is noted. IMPRESSION: 1. Redemonstration of the small right pneumothorax. The right anterior pleural catheter appears in go od position. 2. Trace right pleural effusion. ACT 112: Negative or not required by law. Electronically signed by: Jony Mederos M.D. 01/26/2023 10:34 AM
--- NOTE | 2023-01-26 11:41 | XRay Report ---
XR chest inspiration/expiratio CLINICAL HISTORY: ptx TECHNIQUE: Inspiratory and expiratory views of the chest were obtained. Comparison: Comparison is made to chest radiograph 01/26/2023 FINDINGS: Right chest tube is seen. The cardiomediastinal silhouette is normal. The lungs are clear. There is a tiny right apical pneumothorax on both inspiratory and expiratory views measuring approximately 10 m m in greatest thickness. IMPRESSION: Tiny right apical pneumothorax, stable to slightly increased from prior exam. A right chest tube is i n place. ACT 112: Negative or not required by law. Electronically signed by: John Angulo M.D. 01/26/2023 11:40 AM
--- NOTE | 2023-01-26 12:16 | Procedure Note ---
Procedure Note Date of Service January 26, 2023 Note Procedural: Removal of right sided Thora vent [employer] Dr. Heck Indication: Resolution of previously noted pneumothorax Consent patient is agreeable to proceed Estimated blood loss none The patient's tube has been clamped for over [address] scan was reviewed which revealed a trivial apical pneumothorax. This was also identified on inspiratory and expiratory imaging. The adhesive dressing was taken down. On full expiration, the Thora vent was removed with application of an AGC of dressing secured in place by Tegaderm. The patient tolerated the procedure well without complication. Patient can be dismissed from the hospital at this point time. Recommend she follow-up in pulmonary in 3 to 4 weeks with a follow-up chest x-ray and spirometry at that time. She was given instructions regarding avoiding significant changes in barometric pressure for the next 2 to 3 weeks. She can shower with the dressing in place. The dressing can be removed within the next 24 to 48 hours. She should return to the emergency room for increasing chest pain or shortness of breath. Coding CPT Codes Pulmonary/Thoracic - Pulmonary and Thoracic: 18542 Remove lung catheter ([id number]) [facility] Procedure Codes (Charges) Pulmonary/Thoracic Procedure 1: Pulmonary and Thoracic: 23497 Remove lung catheter
--- NOTE | 2023-01-26 16:04 | Discharge Summary ---
Date of Service January 26, 2023 Admission HPI Per Admitting Provider 17 y/o female with no PMH that was sent here from the urgency due right chest pain and SOB. Patient refers a sharp pain that started yesterday that worsen with inspiration. No alleviating factors. No previous history of pneumothorax. Denied any trauma. She denied any nausea, vomiting, diarrhea, fever, abdominal pain or any other symptoms. Patient tested positive for Covid 19 a week ago. In the ER, Chest tube was placed with suction. Pneumology was consulted in the ER. Patient saturating 100, at room air. Patient will be admitted in PCU for monitoring for chest tube. Will follow with chest x ray am. Principal Diagnosis Spontaneous Pneumothorax Discharge Exam Constitutional: well-appearing, no acute distress HEENT: NCAT, no conjunctival injection CV: regular rhythm, no murmur appreciated, extremities well-perfused, no LE edema Resp: CTABL, rhonchi right upper lobe, no increased work of breathing GI: soft, nondistended, nontender MSK: no gross deformities appreciated Skin: warm, dry, no rash appreciated Neuro: alert, oriented, no focal neurologic deficit appreciated Discharge Data Allergies Allergy/AdvReac Type Severity Reaction Status Date / Time grass pollen Allergy Intermediate CONGESTION, Verified 01/25/23 21:51 HAS CAUSED SINUS INFECTIONS Consultations 01/25/23 21:36 ED Decision to Admit Stat 01/25/23 22:45 Consult Pulmonology Stat Ordered Studies 01/26/23 07:45 CT chest diagnostic wo con Routine Laboratory Results WBC 5.66 K/ul (4.8-10.8) 01/26/23 04:38 RBC 4.27 M/uL (4.20-5.40) 01/26/23 04:38 Hgb 12.8 g/dl (12.0-16.0) 01/26/23 04:38 Hct 37.4 % (37.0-47.0) 01/26/23 04:38 MCV 87.6 fL (80.0-100.0) 01/26/23 04:38 MCH 30.0 pg (25.0-34.0) 01/26/23 04:38 MCHC 34.2 g/dL (32.0-36.0) 01/26/23 04:38 RDW Std Deviation 38.5 fL (36.4-46.3) 01/26/23 04:38 RDW Coeff of Johnny 11.9 % (11.5-14.5) 01/26/23 04:38 Plt Count 265 K/uL (130-400) 01/26/23 04:38 MPV 11.3 fL (9.4-12.4) 01/26/23 04:38 Immature Gran % (Auto) 0.2 % 01/25/23 20:25 Neut % (Auto) 56.8 % 01/25/23 20:25 Lymph % (Auto) 32.8 % 01/25/23 20:25 [place] % (Auto) 9.2 % 01/25/23 20:25 Eos % (Auto) 0.8 % 01/25/23 20:25 Baso % (Auto) 0.2 % 01/25/23 20:25 Neut # (Auto) 2.84 K/uL (1.40-6.50) 01/25/23 20:25 Lymph # (Auto) 1.64 K/uL (1.20-3.40) 01/25/23 20:25 [place] # (Auto) 0.46 K/uL (0.11-0.59) 01/25/23 20:25 Eos # (Auto) 0.04 K/uL (0.00-0.50) 01/25/23 20:25 Baso # (Auto) 0.01 K/uL (0.00-0.20) 01/25/23 20:25 Immature Gran # (Auto) 0.01 K/uL (0.01-0.20) 01/25/23 20:25 D-Dimer < 190 ug/L FEU (0-500) 01/25/23 20:25 Sodium 136 mmol/L (136-145) 01/26/23 04:38 Potassium 3.5 mmol/L (3.5-5.1) 01/26/23 04:38 Chloride 104 mmol/L (98-107) 01/26/23 04:38 Carbon Dioxide 25 mmol/L (21-32) 01/26/23 04:38 Anion Gap 7 (3-11) 01/26/23 04:38 BUN 9 mg/dl (6-23) 01/26/23 04:38 Creatinine 0.62 mg/dl (0.6-1.2) D 01/26/23 04:38 Est Cr Clr Drug Dosing 125.8 ml/min 01/26/23 04:38 Est GFR ( Amer) > 150.0 ml/min 01/26/23 04:38 Est GFR (Non-Af Amer) 130.7 ml/min 01/26/23 04:38 BUN/Creatinine Ratio 14.5 (10-20) 01/26/23 04:38 Glucose 104 mg/dl (70-99(Fasting)) H 01/26/23 04:38 Calcium 8.8 mg/dl (8.6-10.3) 01/26/23 04:38 Total Bilirubin 0.3 mg/dl (0.2-1.0) 01/26/23 04:38 AST 15 U/L (13-39) 01/26/23 04:38 ALT 9 U/L (7-52) 01/26/23 04:38 Alkaline Phosphatase 38 U/L (34-104) 01/26/23 04:38 Troponin I High Sens < 2.3 pg/ml (0-14) 01/25/23 20:25 Total Protein 6.8 gm/dl (6.0-8.3) 01/26/23 04:38 Albumin 4.0 gm/dl (3.4-5.0) 01/26/23 04:38 Globulin 2.8 gm/dl (2.5-4.0) 01/26/23 04:38 Albumin/Globulin Ratio 1.4 (0.9-2) 01/26/23 04:38 Lipase 51 U/L (11-82) 01/25/23 20:25 SARS-CoV-2 (PCR) POSITIVE (Negative) A* 01/26/23 Unknown SARS-CoV-2 RNA ([place]) Cancelled 01/26/23 Unknown SARS-CoV-2, RNA, NAAT POSITIVE (NEGATIVE) A* 01/25/23 22:[address] 01/26/23 07:45 CT chest diagnostic wo con CT DOSE: 288.86 mGy.cm HISTORY: Right-sided pneumothorax. TECHNIQUE: Multiaxial CT images of the chest were performed without contrast. A dose lowering technique was utilized adhering to the principles of ALARA. COMPARISON: Chest 01/26/2023. FINDINGS: There is a right anterior pleural catheter terminating within the mid pleural space. A small right pneumothorax persists. No definite evidence for an apical bleb. A 3 mm subpleural nodule within the right upper lobe anteriorly adjacent to the pleural catheter. This may be due to the pleural catheter placement. There is a 4 mm subpleural nodule within the right lower lobe in image 85. This is indeterminate but likely benign given the patient's age. No focal lung consolidations to suggest a pneumonia. The central airways are patent. No acute fractures. Limited views the upper abdomen demonstrate a normal liver, spleen, and adrenal glands. Normal esophagus. Normal caliber thoracic aorta. Small amount of soft tissue within the anterior mediastinum is consistent with residual thymus given the patient's age. No pericardial effusion. The heart is normal in size. Trace right pleural effusion is noted. IMPRESSION: 1. Redemonstration of the small right pneumothorax. The right anterior pleural catheter appears in good position. 2. Trace right pleural effusion. ACT 112: Negative or not required by law. Electronically signed by: Jony Mederos M.D. 01/26/2023 10:34 AM Chest X-Ray 01/26/23 10:00 XR chest inspiration/expiratio CLINICAL HISTORY: ptx TECHNIQUE: Inspiratory and expiratory views of the chest were obtained. Comparison: Comparison is made to chest radiograph 01/26/2023 FINDINGS: Right chest tube is seen. The cardiomediastinal silhouette is normal. The lungs are clear. There is a tiny right apical pneumothorax on both inspiratory and expiratory views measuring approximately 10 mm in greatest thickness. IMPRESSION: Tiny right apical pneumothorax, stable to slightly increased from prior exam. A right chest tube is in place. ACT 112: Negative or not required by law. Electronically signed by: John Angulo M.D. 01/26/2023 11:40 AM Hospital Course (1) Spontaneous pneumothorax: 17 y/o female with no PMH admitted due to a right spontaneous pneumothorax Right spontaneous pneumothorax -Negative Troponin and D-dimer on 01/25 -Serial CXRs showed improving and near resolution pneumothorax -Noncontrast CT chest demonstrated a trivial apical pneumothorax which was also identified on inspiratory and expiratory imaging -Thora vent chest tube was removed by Pulmonary team -Patient to follow-up with Pulm in 3-4 weeks and follow up CXR and spirometry -Avoid barometric pressure changing events for 2-4 weeks COVID-19: -First positive on 01/15, still testing positive as of 01/26 -Asymptomatic and no additional evaluation, management, or therapy is indicated at this time Total Time Total Time Spent Total Time Spent (In Minutes): See attending attestation Discharge Plan Discharge Items Patient Disposition: Home - Self-Care Reason For Visit: PNEUMOTHORAX Discharge Diagnosis: Spontaneous Pneumothorax Activity: Per Instructions section Non-emergency contact: Primary Care Provider and Real Estate Associate Attorney Call non-emergency contact if: you have any medication questions Follow-up/Referrals: Luis Armando Heck MD [Physician] - (3-4 weeks) [facility] [Primary Care Provider] - Diet: Regular Addtl Attending Provider Instructions: You were admitted with a spontaneous pneumothorax. A chest tube was placed and your lung re-expanded to normal. You can shower with the dressing in place. The dressing can be removed within the next 24 to 48 hours. You should return to the emergency room for increasing chest pain or shortness of breath. You should avoid activities resulting in change in barometric pressure for the next 2 to 4 weeks including commercial air flight and Scuba diving. We would like you to follow-up with the hose handler in 2-3 weeks. There office should reach out to you to schedule an appointment. We would also like you to follow up with the next few days with a primary care doctor. We were able to get you an appointment Wednesday 01/31 at 2:45 at [facility] with Dr. Ho. The office is located at [address] [place] [address]. The phone number for the office is [phone]. If you have any issues please give the office a call. If you able to get an appointment for Tuesday at [facility] that would also be reasonable, if you decide to do that just call and cancel the appointment at [facility]. Pending Studies at Discharge: No Stand-Alone Forms: My [employer], Work/School Release, Smoking Cessation Medications and DC Order Prescriptions: No Action No Known Home Medications Discharge Orders: Discharge Order (Routine); Ordered 01/26/23 Ordered By: Porsha Patiño Admission Data Admit Date/Time: 01/25/23 22:34 Attending Provider: Candy Morgan Admit Provider: Talisha Black Primary Care Provider: [facility] Other Providers: Luis Armando Heck ; Talisha Black Other Interventions: Discharge Summary Assessment (RN) Last Done: 01/26/23 16:22 Supervising Physician Co-Signing Physician Notes I personally examined the patient and verified dubose points of history and exam, discussed case, and agree with decision making and plan documented by Dr. Patiño. Examined patient 2 hours s/p chest tube removal, patient states dyspnea has resolved, mild pain at chest tube site. Patient appears comfortable, lungs with crackles RUL, breath sounds in all [place], regular rate and rhythm, no acute distress. VSS. Patient scheduled for [facility] on 01/31/23 and will schedule with pulmonary in 2-3 weeks. Resident Activity Tracking Resident Involvement: Resident Care Provided Care Provided: Adult Hospital Medicine
--- NOTE | 2023-01-26 17:09 | Electrocardiogram Report ---
Test Reason : Blood Pressure : / mmHG Vent. Rate : 085 BPM Atrial Rate : 085 BPM P-R Int : 112 ms QRS Dur : 072 ms QT Int : 374 ms P-R-T Axes : 085 067 055 degrees QTc Int : 445 ms Normal sinus rhythm Normal ECG No previous ECGs available Confirmed by Danny Maloney ([id number]) on 01/26/2023 5:09:31 PM Referred By: REFERRED SELF Confirmed By:Khoi Maloney
--- NOTE | 2023-01-26 19:32 | Billing Data ---
Date of Service January 25, 2023 Coding Level of Care Code 83945 INT INP/OBS CARE
== END 2023-01-26 16:22 | disposition home or self-care (01) | DRG 199 ==
LOC: ED 19:19 → EDINP 22:34 → SUATTDRO 22:34 → INTOOBSV 22:34 → EDINP 01-26 00:49